=== PATIENT | male | born 1980 | race Hispanic/Latino ===

== ENCOUNTER 2017-08-15 21:29 | Emergency (ER) | payer OTHER ==
[~2017-08-15] VITALS: Ht 172.7 cm; Wt 136.1 kg
[2017-08-15 21:33] VITALS: BP 148/84
--- NOTE | 2017-08-15 22:23 | ED EAR COMPLAINT ---
History of Present Illness General Chief Complaint: Ear Complaints Stated Complaint: "SOMETHING IN MY LEFT EAR" Source: patient Exam Limitations: no limitations Vital Signs & Intake/Output Vital Signs & Intake/Output Vital Signs Date Time Temp Pulse Resp B/P B/P Pulse O2 O2 Flow FiO2 Mean Ox Delivery Rate 08/15 2217 Room Air 08/15 2132 97.2 103 18 148/84 97 Room Air Allergies Coded Allergies: NO KNOWN ALLERGIES (06/18/14) Reconcile Medications No Known Home Medications Triage Note: PT TO TRIAGE C/O "SOMETHING IN MY LEFT EAR, FEELS WATERLOGGED MAYBE." DENIES PAIN, DENIES DIZZINESS. Triage Nurses Notes Reviewed? yes Onset: Abrupt Duration: day(s): (2), constant, continues in ED Timing: single episode today Injury Environment: home Severity: mild, moderate Severity Numbers: 3 No Modifying Factors: none HPI: 36 year old male with no past medical history presents for evaluation of foreign body sensation in the left ear. Patient states that he feels like the ear is clogged perhaps with fluid. He does report some associated congestion. No fever or ear pain. No ear discharge. Has not taken any medicine for this. (Yoel Hill) Past History Travel History Traveled to [place] past 21 day No Medical History Any Pertinent Medical History? see below for history Neurological: NONE EENT: NONE Cardiovascular: NONE Respiratory: asthma Gastrointestinal: NONE Hepatic: NONE Renal: NONE Musculoskeletal: NONE Psychiatric: NONE Endocrine: NONE Blood Disorders: NONE Cancer(s): NONE CLINICAL NUTRITIONIST/Reproductive: NONE Surgical History Surgical History: none Psychosocial History What is your primary language Czech Tobacco Use: Current Daily Use Daily Tobacco Use Amount/Type: => 5 Cigarettes daily Family History Hx Contributory? No (Yoel Hill) Review of Systems Review of Systems Constitutional: Reports: no symptoms. EENTM: Reports: ear pain, nasal congestion. Respiratory: Reports: no symptoms. Cardiovascular: Reports: no symptoms. GI: Reports: no symptoms. Genitourinary: Reports: no symptoms. Musculoskeletal: Reports: no symptoms. Skin: Reports: no symptoms. Neurological/Psychological: Reports: no symptoms. Hematologic/Endocrine: Reports: no symptoms. Immunologic/Allergic: Reports: no symptoms. All Other Systems: Reviewed and Negative (Yoel Hill) Physical Exam Physical Exam General Appearance: well developed/nourished, no apparent distress, alert, awake Head: atraumatic, normal appearance Eyes: Bilateral: normal appearance, PERRL, EOMI. Ears: Left: Tympanic dull, Tympanic bulging, other (see commebnts ). Right: Tympanic normal. Bilateral: canal normal. Nose: discharge (clear) Mouth/Throat: normal mouth inspection Neck: normal inspection, supple, full range of motion Cardiovascular/Respiratory: normal breath sounds, regular rate/rhythm, no respiratory distress Back: normal inspection, normal range of motion Neurologic/Psych: no motor/sensory deficits, awake, alert, oriented x 3, normal gait Skin: intact, normal color, warm/dry Comments: Left ear the left tympanic membrane is slightly cloudy with clear fluid behind. No erythema mild bulging. No pus. No mastoid tenderness,. Gross hearing intact (Yoel Hill) Progress Differential Diagnoses I considered the following diagnoses in my evaluation of the patient: Plan of Care: patient seen and evaluated. Patient appears to have a small amount of fluid behind the left ear. No signs of infection. Patient was instructed to drink plenty of fluids Flonase/Nasonex. Mucinex and ibuprofen. Also saline nasal spray and steam for congestion. Discussed return precautions including signs of infection. Follow-up with primary care doctor. Patient appears well he agrees. Initial ED EKG: none (Yoel Hill) Departure Departure Disposition: HOME OR SELF CARE Condition: Stable Clinical Impression Primary Impression: Middle ear effusion Qualifiers: Laterality: left Qualified Code: H65.92 - Unspecified nonsuppurative otitis media, left ear Referrals: Patient Has No Primary Care Dr (PCP/Family) Additional Instructions: Rest and drink plenty of fluids. Use [id number] Flonase or Nasonex to reduce in her ear fluid. Ibuprofen or Tylenol for pain. Monitor symptoms if you have worsening pain in your ears, ear discharge, fever, chest pain, shortness of breath or any other concerns return to the emergency Department immediately. Departure Forms: Customer Survey General Discharge Information Prescriptions: Current Visit Scripts No Known Home Medications (Yoel Hill) PA/UTILIZATION MANAGEMENT MANAGER Co-Sign Statement Statement: ED Attending supervision documentation- I saw and evaluated the patient. I have also reviewed all the pertinent lab results and diagnostic results. I agree with the findings and the plan of care as documented in the PA's/UTILIZATION MANAGEMENT MANAGER's documentation. x I have reviewed the ED Record and agree with the PA's/UTILIZATION MANAGEMENT MANAGER's documentation. [] Additions or exceptions (if any) to the PAs/UTILIZATION MANAGEMENT MANAGER's note and plan are summarized below: [] (Mayra MARISCAL,Chris)
== END 2017-08-15 22:27 ==
LOC: ERH 21:29
DX: H65.92 Unspecified nonsuppurative otitis media, left ear (principal)

== ENCOUNTER 2017-10-07 07:06 | Inpatient (IN) | payer OTHER ==
[~2017-10-07] VITALS: Ht 172.7 cm; Wt 115.0 kg
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
[2017-10-07 08:51] LABS: ABSOLUTE BASOPHIL COUNT 0.1 /CUMM (0.0-0.2); ABSOLUTE EOSINOPHIL COUNT 0 /CUMM (0.0-0.7); ABSOLUTE GRANULOCYTE CT 8.5 /CUMM (1.4-6.5); ABSOLUTE LYMPH COUNT 1.5 /CUMM (1.2-3.4); ABSOLUTE MONOCYTE COUNT 0.6 /CUMM (0.10-0.60); BASOPHIL % 0.5 % (0.0-2.0); EOSINOPHIL % 0.3 % (0-5); GRANULOCYTE % 80.1 % (42.2-75.2); HEMATOCRIT 46.4 % (42-52); MEAN CORPUSCULAR HGB 30.8 PG (27.0-31.0); MEAN CORPUSCULAR HGB CONC 32.8 G/DL (33.0-37.0); MEAN CORPUSCULAR VOLUME 93.9 FL (80.0-94.0); MEAN PLATELET VOLUME 7.5 FL (7.4-10.4); PLATELET COUNT 386 /CUMM (130-400); RBC DISTRIBUTION WIDTH 13.2 % (11.5-14.5); RED BLOOD CELL CT 4.94 /CUMM (4.70-6.10); WHITE BLOOD CELL COUNT 10.6 /CUMM (4.8-10.8)
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
--- NOTE | 2017-10-08 12:54 | IP CRISIS DIAG ASSESS PSYCH ---
Diagnostic Assessment Basic Assessment Insurance Authorization: Insurance #1: Insurance name: SILVIA UMANA Phone number: Policy number: [id number] Group number: Authorization number: CBHP submitted Primary Care Physician: Patient's PCP: Patient Has No Primary Care Dr PCP's Phone Number: Patient's Quote: Nothing wrong with me. I've had many psychiatric evaluations and never admi Present Illness: Patient has been agitated around the home to which he returned 2 years ago, after having lived in [place] for years. Patient has been threatening to others ,and he is making irrational statements about being connected to LAURA and FBI. Patient is on a police PEER, and will be admitted to cps on a PEC. Patient's Address: [address] [place] [address] Other Phone Number: Who Do You Live With? Family Feel Safe Where You Live? Yes Feel Safe in Your Relationship Yes Marital Status: single Do You Have Children? No Primary Language? Tristanian Language(s) Spoken At Home: Tristanian Family/Informants Interviewed: Louise Ta, mother Allergies - Coded Allergies: NO KNOWN ALLERGIES (10/07/17) Current Medications - No Known Home Medications Consequences of Psych Med Use: refuses any Toxicology Screen Completed? Yes Results: negative Symptoms of Use: denies Past History Past Medical History Medical History: None/Denies Past Surgical History Surgical History RT AKLE SX Abuse/Trauma History Trauma History/Current Trauma: Denies Legal History Current Legal Status: none Pending Court Dates: none Psychosocial History Strengths/Capabilities: has family suport Physical Limitations (Interventions): none noted Psychiatric Treatment History Psych Treatment Psychiatric Treatment No Inpatient Treatment No Outpatient Treatment No Diagnosis by History: ? depression Risk Factors: high anxiety/distress, history of Violence, isolate/no social support, poor impulse control, weapons access, male Substance Use/Abuse History Drug Use/Abuse minimum 12mo Hx Substances Used/Abused No Substance Abuse Treatment Substance Abuse Treatment Past Substance Abuse [place] No Inpatient Treatment No Outpatient Treatment No Sexual History Sexually Active No # of partners 0 Sexual Orientation Heterosexual Use of Protection No Sexual Concerns: had one girlfriend in past whom he met online to whom gave money, but they broke up. Education History Highest Level of Education: high school/GED Preferred Learning Style: experiential Current Mental Status Mental Status Orientation: Person, Place, Situation Affect: Angry, Constricted, Inappropriate Speech: Pressured Neuro-vegetative: WNL Appearance Appearance- Dress/Hygiene: disheveled Behaviors Thought Process: Irrational, Tangential Thought Content: Grandiose Memory: Impaired Insight: Poor SI/HI Risk Assessment - Minimum 6mo History- Past Suicidal Ideation/Attempts No Current Suicidal Ideation/Att No Past Homicidal Ideation/Att: No Current Homicidal Ideation/Attempts Yes (made threats) Degree of Intent: None Danger To: Others Gravely Disabled: Lack of Insight, Poor Impulse Control, Poor Judgment Risk Factors: access to lethal means, high anxiety/distress, isolate/no social support, poor impulse control, male Lethality Ratin Needs/Init TX Plan/Goals: Admit [facility] AUDIT-C Questionnaire: AUDIT-C Questionnaire: Response Value ETOH use in the past year Monthly or less 1 # drinks typical/day 1 or 2 0 6 or > drinks per occasion Never 0 Total 1 DSM5/PS Stressors/Medical Prob Diagnosis' (DSM 5, Stressors, Medical): Unspecified Depressive disorder F32.9 Delusional disorder F22 Current GAF: 24 Comments: Patient has made threats to hurt others. Patient delusional.
[2017-10-08 17:13] VITALS: BP 135/69
[2017-10-08 20:05] VITALS: BP 129/69; BP 135/69
[2017-10-09 07:42] VITALS: BP 137/97
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
[2017-10-09 11:34] VITALS: BP 132/83
--- NOTE | 2017-10-09 13:25 | History & Physical ---
General Information and HPI History of Present Illness: This young man is admitted for the first time to [facility] because of some delusional disorder and was admitted on physician emergency significant after he was brought into the hospital by police. He reportedly was threatening to build some family members although at this time he denies it. There is no significant history and past and he has never been admitted to the psychiatric hospital and does not have any long-standing psychiatric treatment outpatient. For medical standpoint is also fairly stable without any ongoing medical problems and does not have any local physicians and does not take any medication. He was a degenerative 1 injury in the past when he broke his ankle on the right side after injury but no other significant hospitalizations or ongoing medical problems. His family history is only positive for some blood pressure is father and his parents are . He has 3 siblings and claims one half sister has Down syndrome and others. Patient presently lives with his mother in the area and the meniscus was smoking about 15 cigarettes a day. 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 Home Review of Systems Review of Systems Constitutional: Denies: no symptoms (gained a lot of weight recentl), see HPI, fever, weakness. EENTM: Denies: no symptoms. Cardiovascular: Denies: no symptoms. Respiratory: Denies: no symptoms. GI: Denies: no symptoms. Genitourinary: Denies: no symptoms. Musculoskeletal: Denies: no symptoms. Skin: Denies: no symptoms. Neurological/Psychological: Reports: see HPI, confusion, emotional problems. Hematologic/Endocrine: Denies: no symptoms. All Other Systems: Reviewed and Negative Exam & Diagnostic Data Last 24 Hrs of Vital Signs/I&O Vital Signs Date Time Temp Pulse Resp B/P B/P Pulse O2 O2 Flow FiO2 Mean Ox Delivery Rate 10/09 1134 98 132/83 10/09 0742 97.4 88 137/97 10/08 2004 98.2 93 129/69 10/08 2004 98.9 97 135/69 10/08 1713 98.9 97 135/69 10/08 1612 98.0 83 16 116/72 97 Room Air 10/08 1412 97.8 85 16 118/68 96 Room Air Intake & Output 10/09 1600 10/09 0800 10/09 0000 Intake Total Output Total Balance Patient 254 lb Weight Physical Exam General Appearance Alert, Oriented X3, Cooperative, No Acute Distress Skin No Rashes, No Breakdown, No Significant Lesion HEENT Atraumatic, PERRLA, EOMI, Mucous Membr. moist/pink Neck Supple, No JVD, No thryomegaly, +2 Carotid Pulse wo Bruit Lymphatic Cervical nl Cardiovascular Regular Rate, Normal S1, Normal S2, No Murmurs, Gallops, Rubs Lungs Clear to Auscultation, Normal Air Movement Abdomen Normal Bowel Sounds, Soft, No Tenderness, No Hepatospenomegaly, No Masses, obese otherwise benign. Neurological Exam Findings: Normal Gait, Normal Speech, Strength at 5/5 X4 Ext, Normal Tone, Cranial Nerves 3-12 NL, Reflexes 2+ Cranial Nerves II through XII: Within normal limits and intact. Extremities No Clubbing, No Cyanosis, No Edema, No Tenderness/Swelling Assessment/Plan Assessment: Mr. ellen ball is admitted for the first time psychiatric floor for threatening other family members and for possible homicidal ideation when he was brought in by the police. There is no long-standing history of previous psychiatric illness and he reportedly has some delusional ideas when he. From medical standpoint he's fairly stable without any active medical problem. His admission blood work including CBC revealed function and electrolytes and liver function of that all within normal limits and he does not require any specific workup or treatment for medical standpoint As Ranked By This Provider Problem List: 1. Stress 2. Delusion Miscellaneous Miscellaneous Documentation Attending Case Discussed With: Slim MARISCAL,Lamont Primary Care Physician: Patient Has No Primary Care Dr Patient sees these Specialists none Level of Patient Care: GUNNAR Newman Attending MD Review Statement Attending Statement Attending MD Statement: examined this patient, reviewed EMR data (avail), discussed with nursing Attending Assessment/Plan: This young overweight male was admitted for homicidal ideation and delusional disorder. Does not have any ongoing psychiatric problems and for medical standpoint he's fairly stable without any acute medical problems and does not require any workup or treatment from medical standpoint and will be seen only as needed.
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
[2017-10-09 16:42] VITALS: BP 138/76
[2017-10-09 20:05] VITALS: BP 137/81
[2017-10-10 08:03] VITALS: BP 128/82
--- NOTE | 2017-10-10 09:07 | CP SOUTH PROGRESS NOTE PSYCH ---
Psych (Inpt) Progress Note Progress Note Vital Signs Date Time Temp Pulse B/P B/P O2 FiO2 10/10 08 97.7 86 128/82 10/09 2004 97.9 96 137/81 10/09 1642 92 138/76 10/09 1134 98 132/83 Mental Status Examination: Steady gait, Unremarkable appearance The patient was calm and cooperative He showed normal psychomotor activity, No abnormal behaviors Normal speech, not pressured, Good range of affect, Denied feeling depressed or too anxious, Denied suicidal ideation, Denied homicidal ideation The patient denied hallucinations The patient denied feeling paranoid, there were suspicion of delusions during the interview There were no difficulties with thought organization, coherent He seem to have partial insight, Questionable judgment He was alert and oriented to time, place, and person. He showed reasonable attention and concentration and good information processing There were no deficits in memory function Assessment: 36-year-old single who was admitted to the inpatient psychiatric unit with suspicion of delusions. Patient was, couple and cooperative and did not exhibit agitation or irritability and he denied thoughts of suicide he denied thoughts of violence and he denied hallucinations DSM 5 Diagnosis(es): Possibly unspecified Depressive disorder F32.9 Possibility delusional disorder F22 Treatment Plan: The patient did not want any psychotropic medications at this point in Nursing assessments, vital signs, and patient education and Biopsychosocial assessment, collateral information, and aftercare planning Psychiatrist will see patient daily for mental status evaluations and pharmacological discussions
[2017-10-10 12:09] VITALS: BP 141/69
[2017-10-10 15:51] VITALS: BP 141/71
--- NOTE | 2017-10-10 16:01 | SOCIAL WORKER PROG NOTE PSYCH ---
Social Work Progress Note Progress Note Mom will come in tomorrow at 10am for a family meeting, pt has been attending groups and is toherwise passive and cooperative, minimizes psychotic symptomology, continues to refuse medications.
[2017-10-10 20:13] VITALS: BP 138/75
[2017-10-11 07:57] VITALS: BP 141/87
--- NOTE | 2017-10-11 08:28 | CP SOUTH PROGRESS NOTE PSYCH ---
Psych (Inpt) Progress Note Progress Note Mental Status Examination: Family meeting took place which included the patient's mother, the patient, and Marilynn Johnson LCSW and myself The patient remains delusional and only intermittently became a little bit irritated thinking that we think he is a liar because would not believing his delusional system but otherwise he was calm and cooperative, He showed normal psychomotor activity, there were no abnormal behaviors, normal speech, not pressured, he showed good range of affect, the patient denied feeling depressed or too anxious, the patient denied suicidal ideation, denied homicidal ideation, and denied hallucinations. The patient denied feeling paranoid, there were suspicion of delusions during the interview, There were no difficulties with thought organization, he was coherent He showed poor insight and poor judgment and seems to be immune to any rational arguments. He was alert and oriented to time, place, and person. He showed reasonable attention and concentration and good information processing. There were no deficits in memory function Assessment: The patient is a 36-year-old single who was admitted to the inpatient psychiatric unit with delusions. The patient remains pleasantly delusional and politely refusing to consider taking any medications. He seems to be in good behavioral control. And it looks like his delusions are mostly related to him thinking that he has been a [place] [employer] agent since the age of 10 and that she can prove to everybody that he has badges confirming his beliefs. However the mother reported some other observations suggest that he also may be hallucinating she reported that he carries on very long conversations with himself as if he is arguing with someone else but there is nobody there. 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
[2017-10-11 12:22] VITALS: BP 128/78
[2017-10-11 15:47] VITALS: BP 140/87
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
--- NOTE | 2017-10-11 19:40 | SOCIAL WORKER PROG NOTE PSYCH ---
Social Work Progress Note Progress Note Complted [facility] concurrent review - check [facility] web for next review date.
[2017-10-11 19:59] VITALS: BP 133/73
[2017-10-12 07:40] VITALS: BP 131/74
[2017-10-12 11:49] VITALS: BP 128/58
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
[2017-10-12 15:43] VITALS: BP 129/71
[2017-10-12 20:12] VITALS: BP 130/70
[2017-10-13 08:38] VITALS: BP 136/89
--- NOTE | 2017-10-13 10:56 | CP SOUTH PROGRESS NOTE PSYCH ---
Psych (Inpt) Progress Note Progress Note Include the following elements, when applicable: Involvement in the active treatment of the patient with behavioral observations of the patient and the patient's response to the treatment. Review of the ongoing treatment process in the context of the treatment plan. Indication of how multi-disciplinary staff members are carrying out the treatment plan. Plans for future interventions and recommendations for revision of the treatment plan. Liaison with other physicians/providers. Progress Note: Chart reviewed. Progress discussed with nursing staff. Interviewed patient this morning. Again, pleasant and cooperative. "Well doc I'm just taking up a bed here". Reported his dad visited yesterday which went well. Says "you know I was thinking about that seroquel med and think maybe I'll try and take that for sleep". I agreed with him and stated that will be helpful for sleep and for psychiatric symptoms and can replace risperdal. He was in agreement with this. No delusions were espoused today. Denies SI/HI or AVH. Vitals and labs reviewed. Findings are: vitals wnl. No new labs. Mental status exam: moderately groomed overweight HM dressed casually. No abnormal movements. Speech wnl. Mood "good!". Affect odd and euthymic. TP linear. No delusions today. Denies SI/HI. Denies perceptual disturbance. Cognition grossly intact. I/J limited. Assessment and plan: He agrees to take seroquel which is welcome to try and treat delusions as he has consistently refused risperdal. Will start with very low dose, 50 mg, to encourage compliance and limit the occurrence of any SEs that might cause him to begin to refuse this med. Uptitrate as tolerated. Will d /c standing risperdal and also use seroquel PRN sleep. "use weed instead". Re: MRI, unlikely he will tolerate this in future. If primary team feels highly indicated, might attempt to find open MRI. I don't feel as though a head CT at this point would be sufficiently helpful diagnostically. Continue current management as per primary team.
[2017-10-13 12:36] VITALS: BP 140/75
[2017-10-13 16:29] VITALS: BP 136/71
[2017-10-13 19:52] VITALS: BP 132/77
[2017-10-14 07:57] VITALS: BP 124/61
--- NOTE | 2017-10-14 08:45 | CP SOUTH PROGRESS NOTE PSYCH ---
Psych (Inpt) Progress Note Progress Note Vital Signs Date Time Temp Pulse B/P 10/14 0757 96.8 70 124/61 10/14 1951 98.3 91 132/77 10/13 1629 86 136/71 Mental status exam: The patient was pleasant and cooperative. As long as his delusional system is not brought up, he does not bring it up. He denied wishing or thoughts of suicide. He denied feeling hopeless. He was moderately groomed and dressed casually. No abnormal movements. Speech wnl. Mood "good!". Affect odd and euthymic. He was coherent with no evidence of disorganization or loose associations. He denied hallucinations, cognition grossly intact. I/J limited. Assessment : There is no change in the patient's condition. Treatment plan update: The patient will be most likely discharge tomorrow He continues to refuse medications he said he would consider taking Ativan tonight to see if that can help with his sleep Most likely we will be recommending outpatient therapy treat delusions as he has consistently refused risperdal. Will start with very low dose, 50 mg, to encourage compliance and limit the occurrence of any SEs that might cause him to begin to refuse this med. Uptitrate as tolerated. Will d /c standing risperdal and also use seroquel PRN sleep.
[2017-10-14 12:19] VITALS: BP 131/68
--- NOTE | 2017-10-14 13:06 | SOCIAL WORKER PROG NOTE PSYCH ---
Social Work Progress Note Progress Note Pt states he enjoys groups and is open to doing an IOP, he understands it is a 3 day commitment but feels having structure and a program will "keep me focused". Pt identifies "I'd like to work and stay busy, try to get my car registered". Pt feels safe here, and states "I like it here" pt continues to refuse medications, in reference to paranoia i.e. being a [place], I mention medicine may help getting unfocused be less problematic and help with delusional thoughts. I spoke with his Mother he can return home and the day of discharge he can walk as he lives close by. He has an intake appointment with [facility] on 10/15/17 at 1:15pm
[2017-10-14 15:35] VITALS: BP 133/72
[2017-10-14 20:04] VITALS: BP 143/68
[2017-10-15 08:02] VITALS: BP 137/77
[2017-10-15] MEDS ORDERED: ATIVAN1 M1 PO (08:21)
[2017-10-15] MEDS ORDERED: NICOTINE PATCH1 EAC3 TOP (08:21)
--- NOTE | 2017-10-15 08:24 | Patient Discharge Instructions ---
Psych Discharge Inst General Discharge Information Reason for Admission: delusions Psy Discharge Primary Diag+ Unspecified Psychotic Dis Summary Tests/Major Procedures no significant abnormalities Studies Pending at DC: none Patient Instructions Contact Information Your Psychiatrist on [facility] was Lamont Smalls MD * If you are experiencing an emergency related to this hospitalization, please call [phone] to contact the treating psychiatrist or the psychiatrist-on- call. * To Request a copy of your medical records, please contact the Medical Records Department at [phone]. * To request results of studies pending at the time of discharge, please call [phone]. * Continue your Medications until directed to stop by your Healthcare provider. General Medication Information Please continue to take your new medications and your continued home medications , unless otherwise indicated on your discharge medication list, or unless directed by your MD or AMMONIA DISTILLER to stop them. Special Instructions Diet Regular Activity Normal - Tobacco Use Treatment Offered Post DC Medications Offered: Script Given-See Med List Post DC Tobacco Treatment Plan: [place] Tobacco Tx Pgm - EtOH/Drug Use D/O Treatment Offered Post DC Medications Offered: NA-No EtOH/Drug Use D/O Post DC EtOH/SubAbuse [place] Plan: NA-No EtOH/Drug Use D/O Metabolic Screening ([X]) Not Applicable, patient not on a neuroleptic. Advance Directives Does the Patient have Medical Advance Directives Yes/Copy not provided Does Pt have Psychiatric Advance Directives? No/Refused further info Does Patient have a Designated Surrogate Decision Maker: No Information About Psychiatric Advance Directives Provided? Yes Discharge Plan Post Hospital Treatment Plan: Individual Therapy
--- NOTE | 2017-10-15 08:29 | DISCHARGE SUMMARY REPORT-PSYCH ---
Visit Information Visit Dates/Diagnosis' Admission Date: 10/08/2017 Discharge Date: 10/15/17 Reason for Admission: delusions Psy Discharge Primary Diag: Unspecified Psychotic Dis, Psychotic Disorder Due to Multiple Concussions/TBI Psy Discharge Secondary Diag: TBI, multiple concussions Hospital Course Significant Lab Findings: The patient did not have any significant laboratory abnormalities Course Complications: The patient did not have any complications while he was on the inpatient psychiatric unit. Consultations: The patient had history and physical examination performed by the elevator erector helper/ hospitalist. Please refer to the patient's electronic health record for the details of the H&P Allergies: Coded Allergies: NO KNOWN ALLERGIES (10/07/17) Hospital Course/TX Response: I saw the patient for the initial diagnostic assessment and psychiatric evaluation on October 09, 2017. My initial impression and plan was: 36-year-old single who was admitted to the inpatient psychiatric unit with suspicion of delusions. Patient was, couple and cooperative and did not exhibit agitation or irritability and he denied thoughts of suicide he denied thoughts of violence and he denied hallucinations DSM 5 Diagnosis(es): Possibly unspecified Depressive disorder F32.9 Possibility delusional disorder F22 During his stay on the inpatient psychiatric unit, patient did not take any medications during he is a stay on the inpatient psychiatric unit. He seems to have fixed delusions about being a [place] [employer] since the age of 10. His mother came in for a family meeting. She showed some observations that suggested that he also talks to himself at length at home having arguments by himself suggesting that he may be hallucinating and not only having delusions. However he insists that he was not hallucinating. The patient was calm and cooperative and pleasant throughout his stay on the unit. He refused to consider taking any medications insisting that I would change my mind as soon as he is brings may prove that he is a [place] [employer]. The patient's condition at the time of discharge (10/15/2017): Vital Signs: Blood pressure 137/77 mmHg, pulse: 81 bpm; temperature: 98.6F Mental status exam: The patient was pleasant and cooperative. He denied wishing or thoughts of suicide. He denied feeling hopeless. He was moderately groomed and dressed casually. No abnormal movements. Speech was normal. Mood was "good!". Affect was euthymic. As long as his delusional system is not brought up, he does not bring it up. He was coherent with no evidence of disorganization or loose associations. He denied hallucinations, cognition was grossly intact. Poor insight. Assessment: A 36-year-old single who was admitted to the inpatient psychiatric unit because of delusional system about being a [place] [employer] since the age of 10. The patient has been refusing to take any psychiatric medications. He, however, has been calm and cooperative and did not pose any management issues. He has not been voicing any thoughts of suicide and has not been voicing any violent thoughts or thoughts of homicide. There is no change in the patient's condition. Treatment plan update: Discharge home to follow up with IOP Discharge HBIPS - Tobacco Use Treatment Offered Post DC Medications Offered: Script Given-See Med List Post DC Tobacco Treatment Plan: Refused Tobacco Tx Pgm - EtOH/Drug Use D/O Treatment Offered Post DC Medications Offered: NA-No EtOH/Drug Use D/O Post DC EtOH/SubAbuse [place] Plan: NA-No EtOH/Drug Use D/O Metabolic Screening - Screen if on a Neuroleptic Medication - Metabolic screening should include: - Blood Pressure, BMI, Glucose or Hgb A1c, & a - Lipid profile from within the past 365 days. Metabolic Screening ([X]) Not Applicable, patient not on a neuroleptic. Discharge Instructions General Discharge Information Multiple Neuroleptics: ([X]) Not Applicable Discharge Diet Regular Discharge Activity Normal DC Disposition: Discharge home with plan to follow up with [facility] Referrals Ordered Referrals Provider Referral 10/15/17 For Groups: [ IOP] Pt has an intake with [facility]17 [facility] Pres[facility] Start taking the following new medications: Nicotine (Nicotine Patch) 21 MG/24 HOUR PATCH.TD24 21 Milligram On the skin DAILY Qty = 14 No Refills Comments: Last Taken:10/10/17 Time:0930 LORazepam (Ativan) 1 MG TAB 1 Milligram ORAL AT BEDTIME Qty = 15 No Refills Comments: Last Taken:NOT USED IN THE HOSPITAL Time: Studies Pending at Discharge none Copies To: [facility]
--- NOTE | 2017-10-15 10:19 | SOCIAL WORKER PROG NOTE PSYCH ---
Social Work Progress Note Progress Note Introduced myself to Pedro Luis. Reports feeling ready for discharge today. Asked if his symptoms have resolved since admission? He said he really didn't feel he needed to be here and that was a difference of opinion between him and his Mother and Step Father. He denied being suicidal or homicidal. He said being here was beneficial in terms of learning new things and going to groups. Let him know intake at IOP was at 1:15 today. Asked if he had any questions about [facility]? He didn't at this time. We talked about transportation home today. He said he would walk, as he lives a short distance away. He said he will need help possibly through [employer] to get to [facility]. I told him I will give him the [employer] information. He said Mom is aware he is returning home today. She was here to see him last night. Seemed to be organized with no acute delusions during our conversation. He was pleasant and cooperative. Shook my hand at the end of our discussion.
[2017-10-15 12:03] VITALS: BP 132/90
--- NOTE | 2017-10-15 15:50 | SOCIAL WORKER PROG NOTE PSYCH ---
Social Work Progress Note Faxed Referral(s) Referred To: [facility] Transition of Care Documents sent: Health Summary Faxed to: [facility] Fax #: [phone] Faxed by: Kelsy Malik Date faxed: 10/15/17 Time Faxed: [phone]
== END 2017-10-15 13:09 | DRG 751 ==
LOC: ERH 07:06 → CP SOUTH 10-08 11:44 → ERHI 10-08 11:44 → ENTRNSPT 10-08 16:50 → EDTRNSPTSTS 10-08 16:58 → EDTRNSPT 10-08 16:58 → CP SOUTH 10-08 17:04 → CMPTRNSPT 10-08 17:07 → CP SOUTH 10-08 17:08
PROVIDERS: Emergency Medicine
DX: F23 Brief psychotic disorder (principal)
CPT/HCPCS: 80307; 90834; G0463; G0480; J0515; J1630